=== PATIENT | male | born 1990 | race Caucasian/White ===

== ENCOUNTER 2023-01-14 16:38 | Emergency (ER) | payer OTHER ==
[~2023-01-14] VITALS: Ht 165.1 cm; Wt 92.5 kg
[2023-01-14] MEDS ORDERED: SODIUM CHLORIDE 0.9% 1000ML 1,000 ML IV STA (17:02)
[2023-01-14 17:35] LABS: BASOPHILS % 0.5 % (0.0-1.0); EOSINOPHILS # (AUTO) 0.2 (0.0-0.4); EOSINOPHILS % 2.1 % (0.0-6.0); HEMOGLOBIN 13.6 g/dL (14.0-18.0); LYMPHOCYTES # (AUTO) 0.8 (1.0-3.2); LYMPHOCYTES % 8.9 % (18.0-39.1); MEAN CORPUSCULAR HEMOGLOBIN 29.6 pg (28-32); MEAN CORPUSCULAR HGB CONC 33.2 g/dL (31-35); MEAN CORPUSCULAR VOLUME 89.1 fL (81-99); MONOCYTES # (AUTO) 0.6 (0.2-0.8); MONOCYTES % 6.9 % (4.4-11.3); NEUTROPHILS # (AUTO) 6.9 (2.1-6.9); NEUTROPHILS % 81.4 % (38.7-80.0); PLATELET COUNT 164 x10e3/uL (140-360); RED CELL DISTRIBUTION WIDTH 12.1 % (11.7-14.4)
[2023-01-14 17:54] LABS: ALANINE AMINOTRANSFERASE 32 IU/L (0-55); ALBUMIN 4.4 g/dL (3.5-5.0); ALBUMIN/GLOBULIN RATIO 1.4 (0.8-2.0); ALKALINE PHOSPHATASE 57 IU/L (40-150); ANION GAP 12.5 mmol/L (8-16); BLOOD UREA NITROGEN 12 mg/dL (7-26); BUN/CREATININE RATIO 13 (6-25); CALCIUM 9.6 mg/dL (8.4-10.2); CARBON DIOXIDE 27 mmol/L (22-29); CHLORIDE 106 mmol/L (98-107); CREATINE KINASE 179 IU/L (30-200); CREATININE, SERUM 0.91 mg/dL (0.72-1.25); GLUCOSE 94 mg/dL (74-118); POTASSIUM 3.5 mmol/L (3.5-5.1); SODIUM 142 mmol/L (136-145)
[2023-01-14 18:24] LABS: CLARITY,URINE SL CLOUDY (CLEAR); COLOR,URINE YELLOW (YELLOW); KETONES,URINE NEGATIVE (NEGATIVE); LEUKOCYTE ESTERASE ,URINE NEGATIVE (NEGATIVE); NITRITE,URINE NEGATIVE (NEGATIVE); PROTEIN,URINE DIPSTICK NEGATIVE (NEGATIVE); URINE UROBILINOGEN 0.2 mg/dL (0.2 - 1)
[2023-01-14 18:44] LABS: BACTERIA,URINE FEW /HPF
[2023-01-14 18:45] LABS: MUCUS,URINE FEW (RARE)
[2023-01-14 20:12] VITALS: O2SAT 100
== END 2023-01-14 20:25 | disposition home or self-care (01) ==
LOC: EDSEX 16:44 → ER 16:44
DX: R07.89 Other chest pain (principal); F41.9 Anxiety disorder, unspecified
CPT/HCPCS: 36415; 71046; 80053; 81001; 82550; 82553; 83880; 84484; 85025; 93005; 99284; J7030